=== PATIENT | female | born 1950 | race Caucasian/White ===

== ENCOUNTER 2016-09-27 07:51 | Day surgery (SDC) | payer MEDICARE, OTHER ==
[2016-09-27] VITALS (9 sets, daily range): BP systolic 107–162; BP diastolic 58–95; PULSE 71–88; RESP 16–20; TEMP 97.6; O2SAT 92–97
[~2016-09-27] VITALS: Ht 162.6 cm; Wt 61.8 kg
[~2016-09-27 07:51] MED LIST: ALEN70TA39 PO; BUDE3CAP PO; FISH1200 PO; GABA300C3 PO; HYDR12.56 PO; LANS30 PO; LIAL1.2T PO; LORA0.5T PO; VAGI10TA VA; [UNRECOGNIZED DRUG - CODE] PO
[2016-09-27] MEDS ORDERED: LANS30CA PO (08:26)
[2016-09-27] MEDS ORDERED: ASPI81CH CHEW (08:26)
[2016-09-27] MEDS ORDERED: VAGI10TA VAGINAL (08:26)
[2016-09-27] MEDS ORDERED: BUTA1CAP PO (08:26)
[2016-09-27] MEDS ORDERED: LORA-373 PO (08:26)
[2016-09-27] MEDS ORDERED: GABA600T PO (08:26)
[2016-09-27] MEDS ORDERED: TRIA0.1212 PO (08:26)
[2016-09-27] MEDS ORDERED: ALEN1TAB48 PO (08:26)
[2016-09-27] MEDS ORDERED: HYDR12.57 PO (08:26)
[2016-09-27] MEDS ORDERED: LIAL1.2T PO (08:26)
[2016-09-27] MEDS ORDERED: INFL100P (08:26)
[2016-09-27] MEDS ORDERED: GABA300C5 PO (08:26)
[2016-09-27] MEDS ORDERED: OMEG5CAP (08:26)
[2016-09-27] MEDS ORDERED: ATOR20TA15 PO (08:26)
[2016-09-27] MEDS ORDERED: SODIUM CHLOR 0.9% 1000 ML IV SCH (09:00)
[2016-09-27] MEDS ORDERED: LIDOCAINE 1%/EPINEPHrine 1:100,000 SOLN 20 ML VIAL ONE (09:36)
[2016-09-27] MEDS ORDERED: fentaNYL CITRATE 250 MCG/5 ML AMP ONE (09:59)
[2016-09-27] MEDS ORDERED: MIDAZOLAM HCL 5 MG/5 ML VIAL ONE (09:59)
--- NOTE | 2016-09-27 11:14 | RADRPT ---
EXAM DATE/TIME: 09/27/2016 10:07 [place] COMPARISON: No previous studies available for comparison. INDICATIONS : Abnormal liver function. SEDATION TIME: 30 minutes BIOPSY SITE: liver MEDICATION(S): 1.) 3 mg midazolam (Versed) IV 2.) 150 mcg fentanyl (Sublimaze) IV DEVICE(S): 1.) 18 gauge Temno core biopsy needle MEDICAL HISTORY : Gastroesophageal reflux disease. Diverticulosis. Ulcerative colitis. Pancreatitis, Hepatitis A, Conge stive heart failure, Hypertension. SURGICAL HISTORY : Appendectomy. Cholecystectomy. Hysterectomy. ENCOUNTER: Initial ACUITY: 1 day PAIN SCORE: 0/10 LOCATION: Right upper quadrant A total of one core specimen(s) were obtained and sent to the laboratory for pathologic evaluation. PROCEDURE: 1. CT guided liver biopsy. 2. Conscious sedation with continuous EKG and oximetry monitoring. 3. EKG and oximetry remained stable throughout the procedure. Prior to the procedure informed consent was obtained. Any appropriate prior imaging studies were rev iewed. The site was prepped in a sterile fashion. Full sterile technique was used, including cap, mask, mikael rile gloves and gown and a large sterile sheet. Hand hygiene and 2% chlorhexidine and/or betadine/al cohol prep was utilized per protocol for cutaneous antisepsis. The skin and subcutaneous tissues wer e infiltrated with local anesthetic solution. With CT guidance the previously identified target was localized. Biopsy was performed using the presc ribed needle as above. Adequate hemostasis was obtained with compression at the puncture site. Follow-up CT scan reveals no hemorrhage. The patient tolerated the procedure well and there were no complications. The patient was returned to the Radiology Outpatient Unit in stable condition. CONCLUSION: Uncomplicated CT guided biopsy. Flaco Rea MD on September 27, 2016 at 11:12 Board Certified Radiologist. This report was verified electronically.
== END 2016-09-27 14:35 | disposition home or self-care (01) ==
LOC: HRIP 07:51 → HRAD 07:51 → EDSTATUS 08:00 → HRAD 14:35
PROVIDERS: ATTEND Internal Medicine Gastroenterology
DX: R79.89 Other specified abnormal findings of blood chemistry (principal); I10 Essential (primary) hypertension; K85.90 Acute pancreatitis without necrosis or infection, unspecified; K52.9 Noninfective gastroenteritis and colitis, unspecified
CPT/HCPCS: 47000; 77012; 88307; 88313; J2250; J3010; J7030